=== PATIENT | male | born 1950 | race Caucasian/White ===

== ENCOUNTER 2020-02-06 22:07 | Emergency (ER) | payer MEDICAID, OTHER ==
[~2020-02-06] VITALS: Ht 172.7 cm; Wt 83.9 kg
[2020-02-06 22:07] VITALS: BP 140/86
[~2020-02-06 22:07] MED LIST: ESCI10TA PO; OMEP40EC24 PO
--- NOTE | 2020-02-06 22:07 | NUR ---
PT [facility] BLS. TAKEN TO BED 6
[2020-02-06] MEDS ORDERED: ACYCLOVIR 700 MG in NACL 0.9% 100 ML IV ONE (22:10)
[2020-02-06] MEDS ORDERED: KETOROLAC 30 MG/ML VIAL IVP ONE (22:10)
[2020-02-06] MEDS ORDERED: DIAZEPAM PFS 10 MG/2 ML SYR IVP ONE (22:10)
[2020-02-06] MEDS ORDERED: ACYCLOVIR 500 MG VIAL IV ONE (22:21)
--- NOTE | 2020-02-06 22:31 | NUR ---
69 Y/M PRESENTS TO ED FOR RASH TO R FLANK X 1 DAY. PT REPORTS 9/10 SHARP PAIN, THAT RADIATES TO FLANK. PT DENIES N/V/D/ FEVER/ DYSURIA. RR EVEN AND UNLABORED. R FLANK EDEMATOUS AND FLUID FILLED RASH NOTED. PT REPORTS TAKING VICODIN FOR PAIN WITH SLIGHT RELIEF. HX-ASTHMA, CA, DM, GERD, HTN, PVD, SCHIZO, MDD NKDA
--- NOTE | 2020-02-06 23:00 | NUR ---
PATIENT ALERT AND AWAKE, BREATHING EVEN AND UNLABORED
--- NOTE | 2020-02-07 | NUR ---
PATIENT ALERT AND AWAKE, BREATHING EVEN AND UNLABORED
--- NOTE | 2020-02-07 00:34 | NUR ---
[facility] AT BEDSIDE
[2020-02-07 00:35] VITALS: BP 135/83
--- NOTE | 2020-02-07 00:35 | NUR ---
Patient discharged with v/s stable. Written and verbal after care instructions about shingles given and explained. Patient alert, oriented and verbalized understanding of instructions. Ambulance Transport with to [facility]. All questions addressed prior to discharge. ID band removed. Patient advised to follow up with PMD. Rx of Neurontin and Acyclovir given. Patient educated on indication of medication including possible reaction and side effects. Opportunity to ask questions provided and answered.
--- NOTE | 2020-02-07 00:39 | NUR ---
PT TAKEN BY [facility] Addendum: 02/07/20 at 0040 by KIP PT RETURNING TO [facility]
== END 2020-02-07 00:39 | disposition home or self-care (01) ==
LOC: MED 22:07
DX: B02.9 Zoster without complications (principal); E11.9 Type 2 diabetes mellitus without complications; I10 Essential (primary) hypertension; E78.5 Hyperlipidemia, unspecified; F17.210 Nicotine dependence, cigarettes, uncomplicated; F32.9 Major depressive disorder, single episode, unspecified; I73.9 Peripheral vascular disease, unspecified; Z71.6 Tobacco abuse counseling; Z79.899 Other long term (current) drug therapy; Z95.1 Presence of aortocoronary bypass graft
CPT/HCPCS: 96365; 96375; 99284; J0133; J1885; J3360

== ENCOUNTER 2020-03-04 09:23 | Emergency (ER) | payer OTHER ==
[~2020-03-04] VITALS: Ht 167.6 cm; Wt 83.9 kg
--- NOTE | 2020-03-04 09:23 | NUR ---
PT BIBA BLS TO ER BED 11
[2020-03-04 09:29] VITALS: BP 134/70
[2020-03-04] MEDS ORDERED: ERYTHROMYCIN 0.5% OPTH OINT 1 GM TUBE OP ONE (09:30)
--- NOTE | 2020-03-04 09:37 | NUR ---
INITAL CONTACT WITH PATIENT--RECEIVED A 69/M FROM EMS WITH C/O LEFT EYE REDNESS AND IRRITATION. MINIMAL DRAINGE NOTED. DENIES VISUAL CHANGES. IN BED FOR MSE. COVID SCREEN NEGATIVE.
--- NOTE | 2020-03-04 10:00 | NUR ---
PT TOLERATED MEDICATIONS WELL. NO ADVERSE REACTIONS NOTED.
[2020-03-04 10:14] VITALS: BP 134/70
--- NOTE | 2020-03-04 10:14 | NUR ---
Patient discharged with v/s stable. Written and verbal after care instructions given and explained. Patient alert, oriented and verbalized understanding of instructions. Ambulatory with steady gait. All questions addressed prior to discharge. ID band removed. Patient advised to follow up with PMD. Rx of POLYMYXIN B SULFATE/TRIMETHOPRIM given. Patient educated on indication of medication including possible reaction and side effects. Opportunity to ask questions provided and answered.
== END 2020-03-04 10:14 | disposition home or self-care (01) ==
LOC: MED 09:23
DX: H10.9 Unspecified conjunctivitis (principal); E11.9 Type 2 diabetes mellitus without complications; I10 Essential (primary) hypertension; K21.9 Gastro-esophageal reflux disease without esophagitis; Z79.899 Other long term (current) drug therapy
CPT/HCPCS: 99283; 99284

== ENCOUNTER 2020-06-30 11:06 | Emergency (ER) | payer OTHER ==
[~2020-06-30] VITALS: Ht 170.2 cm; Wt 77.1 kg
--- NOTE | 2020-06-30 11:06 | NUR ---
PT BIBA AND PLACED IN BED 10.
[2020-06-30 11:12] VITALS: BP 132/77
--- NOTE | 2020-06-30 11:12 | NUR ---
69 Y/O M BIBA FROM [facility] C/C FALL WITH INJURY TO THE LUE X 20 MINS AGO. PER PT WALKING ON THE CAMPUS, TRIPPED AND FELL. DENIES LOC/HEAD INJURY/CHEST PAIN/DYSPNEA. PT PRESENTS EUPNIC,VSS,AMBULATORY,A/OX4,NEURO WNL. ON ASSESSMENT LUE EXTREMITY LIMITED ROM, CMS WNL. SWOLLEN,PAIN,REDNESS NOTED. MUSCOSKELETAL ASSESSMENT, DEFORMITY NOTED ON HUMERUS AREA ON LUE. NO ACTIVE BLEEDING. PT NKA. HX,RX - SEE CHART
[2020-06-30] MEDS ORDERED: FURO-572 PO (11:16)
[2020-06-30] MEDS ORDERED: LIP80 PO (11:16)
[2020-06-30] MEDS ORDERED: ASCO500T95 PO (11:16)
[2020-06-30] MEDS ORDERED: QUET50TA PO (11:16)
[2020-06-30] MEDS ORDERED: AMLO10TA PO (11:16)
[2020-06-30] MEDS ORDERED: TEMA15CA24 PO (11:16)
[2020-06-30] MEDS ORDERED: OLAN20TA1 PO (11:16)
[2020-06-30] MEDS ORDERED: GABA300C PO ×2 (11:16)
[2020-06-30] MEDS ORDERED: CHOL100037 PO (11:16)
[2020-06-30] MEDS ORDERED: ZINC220C28 PO (11:16)
[2020-06-30] MEDS ORDERED: ACET-2619 PO (11:16)
[2020-06-30] MEDS ORDERED: ASPI-1822 PO (11:16)
[2020-06-30] MEDS ORDERED: FERR325E14 PO (11:16)
[2020-06-30] MEDS ORDERED: LOSA50TA57 PO (11:16)
[2020-06-30] MEDS ORDERED: MIRT15TA PO (11:16)
[2020-06-30] MEDS ORDERED: CARV12.5 PO (11:16)
[2020-06-30] MEDS ORDERED: DOCU-299 PO (11:16)
[2020-06-30] MEDS ORDERED: MAG-17 PO (11:16)
[2020-06-30] MEDS ORDERED: OMEP20EC11 PO (11:16)
[2020-06-30] MEDS ORDERED: MAGN400S60 PO (11:16)
[2020-06-30] MEDS ORDERED: APIX2.5 PO (11:16)
[2020-06-30] MEDS ORDERED: MELA5TAB6 PO (11:16)
[2020-06-30] MEDS ORDERED: KETOROLAC 60 MG/2 ML VIAL IM ONE (11:25)
--- NOTE | 2020-06-30 11:44 | NUR ---
[facility] AT BEDSIDE
[2020-06-30] MEDS ORDERED: NACL 0.9% 1,000 ML IV ONE (12:25)
[2020-06-30] MEDS ORDERED: MORPHINE SULFATE 4 MG/ML SYR IVP ONE (12:35)
--- NOTE | 2020-06-30 13:47 | NUR ---
CHANDRIKA at bedside for return transport to [facility] room # 235-A.
--- NOTE | 2020-06-30 14:00 | NUR ---
SPOKE TO COURTNEY AREVALO FROM RECEIVING FACILITY [facility] PT HEADING BACK HOME
[2020-06-30 14:01] VITALS: BP 130/74
--- NOTE | 2020-06-30 14:02 | NUR ---
Patient discharged with v/s stable. Written and verbal after care instructions given and explained. Patient alert, oriented and verbalized understanding of instructions. [facility]. All questions addressed prior to discharge. ID band removed. Patient advised to follow up with PMD. Rx of NAPROSYN given. Patient educated on indication of medication including possible reaction and side effects. Opportunity to ask questions provided and answered.
== END 2020-06-30 13:55 ==
LOC: MED 11:06
DX: S42.352A Displaced comminuted fracture of shaft of humerus, left arm, initial encounter for closed fracture (principal); E11.9 Type 2 diabetes mellitus without complications; K21.9 Gastro-esophageal reflux disease without esophagitis; I10 Essential (primary) hypertension; F17.210 Nicotine dependence, cigarettes, uncomplicated; Z90.49 Acquired absence of other specified parts of digestive tract; Z98.890 Other specified postprocedural states; Z79.84 Long term (current) use of oral hypoglycemic drugs; Z79.899 Other long term (current) drug therapy; W01.0XXA Fall on same level from slipping, tripping and stumbling without subsequent striking against object, initial encounter; Y93.01 Activity, walking, marching and hiking; Y92.89 Other specified places as the place of occurrence of the external cause; Y99.8 Other external cause status
CPT/HCPCS: 71045; 73060; 96361; 96372; 96374; 99284; J1885; J2270; Q0092; J7030

== ENCOUNTER 2020-09-21 08:22 | Inpatient (IN) | payer OTHER, SELFPAY ==
[~2020-09-21] VITALS: Ht 170.2 cm; Wt 81.6 kg
[2020-09-21 08:22] VITALS: BP 101/62
[~2020-09-21 08:22] MED LIST changes: +ACET-2619 PO; +AMLO10TA PO; +APIX2.5 PO; +ASCO500T95 PO; +ASPI-1822 PO; +CARV12.5 PO; +CHOL100037 PO; +DOCU-299 PO; +FERR325E14 PO; +FURO-572 PO; +GABA300C PO; +LIP80 PO; +LOSA50TA57 PO; +MAG-17 PO; +MAGN400S60 PO; +MELA5TAB6 PO; +MIRT-91 PO; +OLAN20TA1 PO; +OMEP20EC11 PO; +QUET50TA PO; +TEMA15CA24 PO; +ZINC220C28 PO
[2020-09-21] MEDS ORDERED: CICL8SOL TP (08:46)
[2020-09-21] MEDS ORDERED: LORA10TA19 PO (08:46)
[2020-09-21] MEDS ORDERED: ATOR40TA PO (08:46)
[2020-09-21] MEDS ORDERED: LIQUITEARS OP (08:46)
[2020-09-21] MEDS ORDERED: COLL30OI TP (08:46)
[2020-09-21] MEDS ORDERED: ALUM355S50 PO (08:46)
[2020-09-21] MEDS ORDERED: HYDR-5092 PO (08:46)
[2020-09-21] MEDS ORDERED: BACTO TP (08:46)
[2020-09-21] MEDS ORDERED: NA P133E RC (08:46)
[2020-09-21] MEDS ORDERED: ACET-9882 PO (08:46)
[2020-09-21 09:01] LABS: EOSINOPHILS % (AUTO) 0.1 % (0.0-4.0); HEMATOCRIT 41.6 % (36-52); HEMOGLOBIN 13.8 g/dL (12.0-18.0); LYMPHOCYTES # (AUTO) 0.4 K/uL (2.0-11.5); LYMPHOCYTES % (AUTO) 4.9 % (20.5-51.1); MEAN CORPUSCULAR HEMOGLOBIN 30 pg (27-31); MEAN CORPUSCULAR HGB CONC 33 g/dL (33-37); MEAN CORPUSCULAR VOLUME 91.3 fL (80-94); MONOCYTES # (AUTO) 0.3 K/uL (0.8-1.0); MONOCYTES % (AUTO) 3.7 % (1.7-9.3); NEUTROPHILS # (AUTO) 7.8 K/uL (1.8-7.7); NEUTROPHILS % (AUTO) 91.3 % (42.2-75.2); PLATELET COUNT (AUTO) 205 K/uL (140-450); RED BLOOD CELL COUNT(AUTO) 4.55 MIL/uL (4.20-6.10); RED CELL DISTRIBUTION WIDTH 14.6 % (11.6-13.7); WHITE BLOOD COUNT (AUTO) 8.6 K/uL (4.8-10.8)
[2020-09-21 09:20] LABS: APPEARANCE,URINE CLEAR (CLEAR); BILIRUBIN,URINE NEGATIVE (NEGATIVE); BLOOD, URINE 1+ (NEGATIVE); COLOR,URINE YELLOW (YELLOW); LEUKOCYTE ESTERASE ,URINE NEGATIVE (NEGATIVE); NITRITE, URINE NEGATIVE (NEGATIVE); UGLUCOSE NEGATIVE (NEGATIVE)
[2020-09-21 09:24] LABS: PROTHROMBIN TIME 10.4 secs (10.8-13.4)
[2020-09-21 09:25] LABS: ALBUMIN 3.4 g/dL (3.4-5.0); ANION GAP 16.7 (8-16); CREATININE 1.7 mg/dL (0.6-1.3); LACTATE DEHYDROGENASE 270 U/L (85-227); POTASSIUM 4.7 mmol/L (3.5-5.1); TOTAL BILIRUBIN 0.5 mg/dL (0.0-1.0)
[2020-09-21 09:32] LABS: C-REACTIVE PROTEIN QUANT 3.2 mg/dL (0.0-0.9)
[2020-09-21 09:36] LABS: WBC,URINE 0-5 /HPF (0-5)
[2020-09-21 09:38] LABS: HYALINE CASTS, URINE 0-10 /LPF (None Seen)
[2020-09-21] MEDS ORDERED: MORPHINE SULFATE 4 MG/ML SYR IVP ONE (10:15)
[2020-09-21] MEDS ORDERED: SIMETHICONE 40 MG/0.6 ML PO ONE (11:10)
[2020-09-21] MEDS ORDERED: cefTRIAXone 1,000 MG VIAL ONE (11:51)
[2020-09-21] MEDS ORDERED: guaiFENesin DM 200/20 MG-10 ML 10 ML UDC PO PRN (12:15)
[2020-09-21] MEDS ORDERED: ACETAMINOPHEN 325 MG TAB PO PRN (12:15)
[2020-09-21] MEDS ORDERED: POTASSIUM CHLORIDE 10 MEQ TABER PO PRN (12:15)
[2020-09-21] MEDS ORDERED: DOCUSATE SODIUM 100 MG GELCAP PO PRN (12:15)
[2020-09-21] MEDS ORDERED: ONDANSETRON 4 MG/2 ML VIAL IM/IVP PRN (12:15)
[2020-09-21] MEDS ORDERED: ZOLPIDEM 5 MG TAB PO PRN (12:15)
[2020-09-21] MEDS ORDERED: ALBUTEROL HFA MDI 90 MCG/ACTUATION 8 GM INH PRN (12:35)
[2020-09-21] MEDS ORDERED: ALBUTEROL SULFATE/IPRATROPIU 3 ML SOL IH PRN (12:35)
[2020-09-21 12:41] VITALS: BP 130/68
[2020-09-21 12:50] LABS: BARBITURATE, URINE NEGATIVE ng/ml (NEG <=200)
[2020-09-21 12:51] LABS: BENZODIAZEPINE, URINE NEGATIVE ng/mL (NEG <=200); CANNABINOID, URINE NEGATIVE ng/mL (NEG <=50); COCAINE, URINE NEGATIVE ng/mL (NEG <=300); OPIATE, URINE POSITIVE ng/mL (NEG <=2000); PHENCYCLIDINE SCREEN,URINE NEGATIVE ng/mL (NEG <=25)
[2020-09-21 12:56] LABS: CHOL/HDL RATIO 3.9 (1-4.5); FREE T4 (FREE THYROXINE) 0.86 ng/dL (0.76-1.46); MAGNESIUM 2.1 mg/dL (1.8-2.4); PHOSPHORUS 4.7 mg/dL (2.5-4.9); THYROID STIMULATING HORMONE 0.55 uIU/mL (0.34-3.74)
[2020-09-21] MEDS: ALBUTEROL SULFATE/IPRATROPIU 3 ML SOL IH SCH ×2 (13:00→19:00)
[2020-09-21] MEDS: NACL 0.9% 1,000 ML IV SCH (13:39)
[2020-09-21] MEDS: HYDROcodone/APAP 7.5/325 MG 1 TAB PO PRN (14:26)
[2020-09-21 16:00] VITALS: BP 113/73
[2020-09-21] MEDS ORDERED: DEXTROSE 50% 50 ML SYR IVP PRN (19:25)
[2020-09-21 20:00] VITALS: BP 94/56
[2020-09-21 20:23] LABS: TOTAL PROTEIN URINE 169.7 MG/DL
[2020-09-21] MEDS: QUEtiapine FUMARATE 25 MG TAB PO SCH (20:38)
[2020-09-21] MEDS: FERROUS SULFATE 325 MG TABEC PO SCH (20:38)
[2020-09-21] MEDS: MIRTAZAPINE 15 MG TAB PO SCH (20:38)
[2020-09-21] MEDS: ATORVASTATIN 20 MG TAB PO SCH (20:38)
[2020-09-21] MEDS: APIXABAN 2.5 MG TAB PO SCH (20:38)
[2020-09-21] MEDS: OLANZapine 5 MG TAB PO SCH (20:38)
[2020-09-21] MEDS ORDERED: GABAPENTIN 300 MG CAP PO SCH (21:00)
[2020-09-21] MEDS: BLOOD GLUCOSE MONITORING 1 DEV DEV FS SCH (21:21)
[2020-09-21] MEDS: carvediloL 12.5 MG TAB PO SCH (21:22)
[2020-09-21] MEDS: INSULIN LISPRO SLIDING SCALE 100 UNITS/ML VIAL SUBQ PRN (21:23)
[2020-09-22] VITALS: BP 108/57
[2020-09-22] MEDS: ALBUTEROL SULFATE/IPRATROPIU 3 ML SOL IH SCH ×3 (01:00→13:35)
[2020-09-22 04:00] VITALS: BP 110/56
[2020-09-22] MEDS: NACL 0.9% 1,000 ML IV SCH ×2 (04:55→21:35)
[2020-09-22 05:50] LABS: ANION GAP 15.9 (8-16); CARBON DIOXIDE 28.9 mmol/L (21-32); POTASSIUM 4.8 mmol/L (3.5-5.1)
[2020-09-22 05:58] LABS: BASOPHILS % (AUTO) 0.2 % (0.0-2.0); EOSINOPHILS % (AUTO) 0.1 % (0.0-4.0); HEMATOCRIT 37.9 % (36-52); HEMOGLOBIN 12.7 g/dL (12.0-18.0); LYMPHOCYTES # (AUTO) 0.8 K/uL (2.0-11.5); LYMPHOCYTES % (AUTO) 7.8 % (20.5-51.1); MEAN CORPUSCULAR HEMOGLOBIN 31 pg (27-31); MEAN CORPUSCULAR HGB CONC 33 g/dL (33-37); MEAN CORPUSCULAR VOLUME 91.8 fL (80-94); MONOCYTES # (AUTO) 0.7 K/uL (0.8-1.0); MONOCYTES % (AUTO) 6.8 % (1.7-9.3); NEUTROPHILS # (AUTO) 8.8 K/uL (1.8-7.7); NEUTROPHILS % (AUTO) 85.1 % (42.2-75.2); PLATELET COUNT (AUTO) 190 K/uL (140-450); RED BLOOD CELL COUNT(AUTO) 4.13 MIL/uL (4.20-6.10); RED CELL DISTRIBUTION WIDTH 14.9 % (11.6-13.7); WHITE BLOOD COUNT (AUTO) 10.3 K/uL (4.8-10.8)
[2020-09-22] MEDS: BLOOD GLUCOSE MONITORING 1 DEV DEV FS SCH ×4 (06:30→21:27)
[2020-09-22] MEDS: INSULIN LISPRO SLIDING SCALE 100 UNITS/ML VIAL SUBQ PRN ×3 (06:30→16:55)
[2020-09-22 08:00] VITALS: BP 142/86
[2020-09-22] MEDS ORDERED: ASCORBIC ACID 500 MG TAB PO SCH (09:00)
[2020-09-22] MEDS ORDERED: FUROSEMIDE 20 MG TAB PO SCH (09:00)
[2020-09-22] MEDS ORDERED: LOSARTAN 50 MG TAB PO SCH (09:00)
[2020-09-22] MEDS ORDERED: GABAPENTIN 300 MG CAP PO SCH (09:00)
[2020-09-22] MEDS: ASPIRIN 81 MG TAB.CHEW PO SCH (09:10)
[2020-09-22] MEDS: FERROUS SULFATE 325 MG TABEC PO SCH ×2 (09:10→21:14)
[2020-09-22] MEDS: PANTOPRAZOLE 40 MG TABEC PO SCH (09:10)
[2020-09-22] MEDS: ZINC SULF 220 MG CAP PO SCH (09:10)
[2020-09-22] MEDS: carvediloL 12.5 MG TAB PO SCH ×2 (09:11→21:00)
[2020-09-22] MEDS: amLODIPine 5 MG TAB PO SCH (09:11)
[2020-09-22] MEDS: ASCORBIC ACID 500 MG TAB PO SCH (09:11)
[2020-09-22] MEDS: APIXABAN 2.5 MG TAB PO SCH ×2 (09:16→21:16)
[2020-09-22 12:00] VITALS: BP 133/77
[2020-09-22] MEDS ORDERED: DICYCLOMINE 10 MG CAP PO SCH (14:28)
[2020-09-22 16:00] VITALS: BP 123/65
[2020-09-22 20:00] VITALS: BP 100/54
[2020-09-22] MEDS: MIRTAZAPINE 15 MG TAB PO SCH (21:13)
[2020-09-22] MEDS: QUEtiapine FUMARATE 25 MG TAB PO SCH (21:14)
[2020-09-22] MEDS: OLANZapine 5 MG TAB PO SCH (21:14)
[2020-09-22] MEDS: ATORVASTATIN 20 MG TAB PO SCH (21:15)
[2020-09-22] MEDS: HYDROcodone/APAP 7.5/325 MG 1 TAB PO PRN (21:34)
[2020-09-23] VITALS: BP 100/63
[2020-09-23] MEDS: traZODone 50 MG TAB PO PRN ×2 (01:26→22:13)
[2020-09-23] MEDS: NACL 0.9% 1,000 ML IV SCH ×2 (03:35→21:30)
[2020-09-23 04:00] VITALS: BP 111/65
[2020-09-23 06:49] LABS: BASOPHILS % (AUTO) 0.1 % (0.0-2.0); HEMATOCRIT 33.1 % (36-52); HEMOGLOBIN 10.9 g/dL (12.0-18.0); LYMPHOCYTES # (AUTO) 0.5 K/uL (2.0-11.5); LYMPHOCYTES % (AUTO) 5.6 % (20.5-51.1); MEAN CORPUSCULAR HEMOGLOBIN 31 pg (27-31); MEAN CORPUSCULAR HGB CONC 33 g/dL (33-37); MONOCYTES # (AUTO) 0.5 K/uL (0.8-1.0); MONOCYTES % (AUTO) 6.1 % (1.7-9.3); NEUTROPHILS # (AUTO) 7.3 K/uL (1.8-7.7); NEUTROPHILS % (AUTO) 88.2 % (42.2-75.2); PLATELET COUNT (AUTO) 171 K/uL (140-450); RED BLOOD CELL COUNT(AUTO) 3.56 MIL/uL (4.20-6.10); WHITE BLOOD COUNT (AUTO) 8.3 K/uL (4.8-10.8)
[2020-09-23] MEDS: BLOOD GLUCOSE MONITORING 1 DEV DEV FS SCH ×4 (06:53→20:12)
[2020-09-23 07:04] LABS: ANION GAP 14.3 (8-16); CARBON DIOXIDE 25.8 mmol/L (21-32); CREATININE 1.9 mg/dL (0.6-1.3); POTASSIUM 5.1 mmol/L (3.5-5.1)
[2020-09-23 08:00] VITALS: BP 121/71
[2020-09-23] MEDS: FERROUS SULFATE 325 MG TABEC PO SCH ×2 (08:45→21:05)
[2020-09-23] MEDS: ZINC SULF 220 MG CAP PO SCH (08:45)
[2020-09-23] MEDS: PANTOPRAZOLE 40 MG TABEC PO SCH (08:45)
[2020-09-23] MEDS: ASPIRIN 81 MG TAB.CHEW PO SCH (08:46)
[2020-09-23] MEDS: ASCORBIC ACID 500 MG TAB PO SCH (08:47)
[2020-09-23] MEDS: HYDROcodone/APAP 7.5/325 MG 1 TAB PO PRN ×2 (08:48→19:00)
[2020-09-23] MEDS: amLODIPine 5 MG TAB PO SCH (08:49)
[2020-09-23] MEDS: carvediloL 12.5 MG TAB PO SCH ×2 (08:49→21:12)
[2020-09-23] MEDS: APIXABAN 2.5 MG TAB PO SCH ×2 (08:52→21:10)
[2020-09-23 12:00] VITALS: BP 102/49
[2020-09-23] MEDS: INSULIN LISPRO SLIDING SCALE 100 UNITS/ML VIAL SUBQ PRN ×2 (12:03→20:58)
[2020-09-23] MEDS: ALBUTEROL SULFATE/IPRATROPIU 3 ML SOL IH SCH ×2 (13:00→19:00)
[2020-09-23 16:00] VITALS: BP 117/81
[2020-09-23 20:00] VITALS: BP 122/53
[2020-09-23] MEDS ORDERED: MORPHINE SULFATE 4 MG/ML SYR IVP ONE (20:45)
[2020-09-23] MEDS: OLANZapine 5 MG TAB PO SCH (21:04)
[2020-09-23] MEDS: MIRTAZAPINE 15 MG TAB PO SCH (21:04)
[2020-09-23] MEDS: QUEtiapine FUMARATE 25 MG TAB PO SCH (21:05)
[2020-09-23] MEDS: ATORVASTATIN 20 MG TAB PO SCH (21:05)
[2020-09-24] VITALS: BP 154/72
[2020-09-24] MEDS: ALBUTEROL SULFATE/IPRATROPIU 3 ML SOL IH SCH ×4 (01:00→19:00)
[2020-09-24 04:00] VITALS: BP 149/114
[2020-09-24] MEDS: BLOOD GLUCOSE MONITORING 1 DEV DEV FS SCH ×4 (06:05→21:00)
[2020-09-24 07:25] LABS: ANION GAP 8.2 (8-16); CARBON DIOXIDE 25.2 mmol/L (21-32); CREATININE 1.8 mg/dL (0.6-1.3); POTASSIUM 4.4 mmol/L (3.5-5.1)
[2020-09-24 07:31] LABS: HEMATOCRIT 31.3 % (36-52); HEMOGLOBIN 10.3 g/dL (12.0-18.0); LYMPHOCYTES # (AUTO) 0.8 K/uL (2.0-11.5); LYMPHOCYTES % (AUTO) 8.5 % (20.5-51.1); MEAN CORPUSCULAR HEMOGLOBIN 30 pg (27-31); MEAN CORPUSCULAR HGB CONC 33 g/dL (33-37); MEAN CORPUSCULAR VOLUME 92.8 fL (80-94); MONOCYTES # (AUTO) 0.8 K/uL (0.8-1.0); MONOCYTES % (AUTO) 7.9 % (1.7-9.3); NEUTROPHILS # (AUTO) 8.1 K/uL (1.8-7.7); NEUTROPHILS % (AUTO) 83.6 % (42.2-75.2); PLATELET COUNT (AUTO) 178 K/uL (140-450); RED BLOOD CELL COUNT(AUTO) 3.37 MIL/uL (4.20-6.10); WHITE BLOOD COUNT (AUTO) 9.7 K/uL (4.8-10.8)
[2020-09-24 08:00] VITALS: BP 118/66
[2020-09-24] MEDS: carvediloL 12.5 MG TAB PO SCH ×2 (09:00→20:13)
[2020-09-24] MEDS: ASCORBIC ACID 500 MG TAB PO SCH (10:15)
[2020-09-24] MEDS: amLODIPine 5 MG TAB PO SCH (10:15)
[2020-09-24] MEDS: HYDROcodone/APAP 7.5/325 MG 1 TAB PO PRN (10:15)
[2020-09-24] MEDS: ZINC SULF 220 MG CAP PO SCH (10:16)
[2020-09-24] MEDS: ASPIRIN 81 MG TAB.CHEW PO SCH (10:16)
[2020-09-24] MEDS: FERROUS SULFATE 325 MG TABEC PO SCH ×2 (10:16→20:13)
[2020-09-24] MEDS: PANTOPRAZOLE 40 MG TABEC PO SCH (10:16)
[2020-09-24] MEDS: APIXABAN 2.5 MG TAB PO SCH ×2 (10:18→20:16)
[2020-09-24 12:00] VITALS: BP 114/69
[2020-09-24 16:00] VITALS: BP 125/68
[2020-09-24 20:00] VITALS: BP 119/83
[2020-09-24] MEDS: OLANZapine 5 MG TAB PO SCH (20:13)
[2020-09-24] MEDS: ATORVASTATIN 20 MG TAB PO SCH (20:13)
[2020-09-24] MEDS: QUEtiapine FUMARATE 25 MG TAB PO SCH (20:13)
[2020-09-24] MEDS: MIRTAZAPINE 15 MG TAB PO SCH (20:14)
[2020-09-24] MEDS: traZODone 50 MG TAB PO PRN (20:14)
[2020-09-24] MEDS: NACL 0.9% 1,000 ML IV SCH (23:35)
[2020-09-25] VITALS: BP 115/65
[2020-09-25] MEDS: ALBUTEROL SULFATE/IPRATROPIU 3 ML SOL IH SCH ×4 (01:00→19:00)
[2020-09-25] MEDS: HYDROcodone/APAP 7.5/325 MG 1 TAB PO PRN (03:06)
[2020-09-25 04:00] VITALS: BP 117/63
[2020-09-25] MEDS: BLOOD GLUCOSE MONITORING 1 DEV DEV FS SCH ×4 (06:33→21:16)
[2020-09-25 07:12] LABS: EOSINOPHILS # (AUTO) 0.1 K/uL (0-0.4); EOSINOPHILS % (AUTO) 0.8 % (0.0-4.0); HEMATOCRIT 32.6 % (36-52); HEMOGLOBIN 10.7 g/dL (12.0-18.0); LYMPHOCYTES # (AUTO) 0.7 K/uL (2.0-11.5); LYMPHOCYTES % (AUTO) 7.7 % (20.5-51.1); MEAN CORPUSCULAR HEMOGLOBIN 30 pg (27-31); MEAN CORPUSCULAR HGB CONC 33 g/dL (33-37); MEAN CORPUSCULAR VOLUME 92.2 fL (80-94); MONOCYTES # (AUTO) 0.9 K/uL (0.8-1.0); MONOCYTES % (AUTO) 10.7 % (1.7-9.3); NEUTROPHILS % (AUTO) 80.8 % (42.2-75.2); PLATELET COUNT (AUTO) 179 K/uL (140-450); RED BLOOD CELL COUNT(AUTO) 3.53 MIL/uL (4.20-6.10); RED CELL DISTRIBUTION WIDTH 14.4 % (11.6-13.7); WHITE BLOOD COUNT (AUTO) 8.7 K/uL (4.8-10.8)
[2020-09-25 07:21] LABS: MAGNESIUM 2.3 mg/dL (1.8-2.4); PHOSPHORUS 3.5 mg/dL (2.5-4.9)
[2020-09-25 07:23] LABS: ANION GAP 13.5 (8-16); CREATININE 1.7 mg/dL (0.6-1.3); POTASSIUM 4.5 mmol/L (3.5-5.1)
[2020-09-25 08:00] VITALS: BP 144/71
[2020-09-25] MEDS: PANTOPRAZOLE 40 MG TABEC PO SCH (08:48)
[2020-09-25] MEDS: ASPIRIN 81 MG TAB.CHEW PO SCH (08:48)
[2020-09-25] MEDS: ASCORBIC ACID 500 MG TAB PO SCH (08:48)
[2020-09-25] MEDS: amLODIPine 5 MG TAB PO SCH (08:49)
[2020-09-25] MEDS: APIXABAN 2.5 MG TAB PO SCH ×2 (08:50→21:22)
[2020-09-25] MEDS: carvediloL 12.5 MG TAB PO SCH ×2 (08:52→21:00)
[2020-09-25] MEDS: FERROUS SULFATE 325 MG TABEC PO SCH ×2 (08:52→21:20)
[2020-09-25] MEDS: ZINC SULF 220 MG CAP PO SCH (08:52)
[2020-09-25 12:00] VITALS: BP 136/73
[2020-09-25 16:00] VITALS: BP 136/71
[2020-09-25] MEDS: NACL 0.9% 1,000 ML IV SCH (16:15)
[2020-09-25 20:00] VITALS: BP 119/58
[2020-09-25] MEDS: ATORVASTATIN 20 MG TAB PO SCH (21:20)
[2020-09-25] MEDS: MIRTAZAPINE 15 MG TAB PO SCH (21:20)
[2020-09-25] MEDS: QUEtiapine FUMARATE 25 MG TAB PO SCH (21:21)
[2020-09-25] MEDS: OLANZapine 5 MG TAB PO SCH (21:21)
[2020-09-26] VITALS: BP 111/75
[2020-09-26] MEDS: ALBUTEROL SULFATE/IPRATROPIU 3 ML SOL IH SCH ×3 (01:00→13:23)
[2020-09-26 04:00] VITALS: BP 135/66
[2020-09-26 07:29] LABS: BASOPHILS % (AUTO) 0.1 % (0.0-2.0); EOSINOPHILS # (AUTO) 0.1 K/uL (0-0.4); EOSINOPHILS % (AUTO) 0.8 % (0.0-4.0); HEMATOCRIT 32.4 % (36-52); HEMOGLOBIN 10.9 g/dL (12.0-18.0); LYMPHOCYTES # (AUTO) 0.7 K/uL (2.0-11.5); LYMPHOCYTES % (AUTO) 6.9 % (20.5-51.1); MEAN CORPUSCULAR HEMOGLOBIN 31 pg (27-31); MEAN CORPUSCULAR HGB CONC 34 g/dL (33-37); MONOCYTES # (AUTO) 1.1 K/uL (0.8-1.0); MONOCYTES % (AUTO) 10.5 % (1.7-9.3); NEUTROPHILS # (AUTO) 8.5 K/uL (1.8-7.7); NEUTROPHILS % (AUTO) 81.7 % (42.2-75.2); PLATELET COUNT (AUTO) 186 K/uL (140-450); RED BLOOD CELL COUNT(AUTO) 3.57 MIL/uL (4.20-6.10); RED CELL DISTRIBUTION WIDTH 14.1 % (11.6-13.7); WHITE BLOOD COUNT (AUTO) 10.3 K/uL (4.8-10.8)
[2020-09-26 07:44] LABS: MAGNESIUM 2.1 mg/dL (1.8-2.4); PHOSPHORUS 3.2 mg/dL (2.5-4.9)
[2020-09-26] MEDS: BLOOD GLUCOSE MONITORING 1 DEV DEV FS SCH ×2 (07:51→11:34)
[2020-09-26 08:11] LABS: ANION GAP 14.6 (8-16); CARBON DIOXIDE 24.6 mmol/L (21-32); CREATININE 1.3 mg/dL (0.6-1.3); POTASSIUM 4.2 mmol/L (3.5-5.1)
[2020-09-26] MEDS: ASCORBIC ACID 500 MG TAB PO SCH (08:45)
[2020-09-26] MEDS: PANTOPRAZOLE 40 MG TABEC PO SCH (08:45)
[2020-09-26] MEDS: carvediloL 12.5 MG TAB PO SCH (08:46)
[2020-09-26] MEDS: ASPIRIN 81 MG TAB.CHEW PO SCH (08:46)
[2020-09-26] MEDS: ZINC SULF 220 MG CAP PO SCH (08:47)
[2020-09-26] MEDS: FERROUS SULFATE 325 MG TABEC PO SCH (08:47)
[2020-09-26] MEDS: amLODIPine 5 MG TAB PO SCH (08:47)
[2020-09-26] MEDS: HYDROcodone/APAP 7.5/325 MG 1 TAB PO PRN (08:48)
[2020-09-26] MEDS: APIXABAN 2.5 MG TAB PO SCH (08:55)
[2020-09-26] MEDS: NACL 0.9% 1,000 ML IV SCH (09:00)
[2020-09-26] MEDS ORDERED: AMOX-1000 PO (11:48)
[2020-09-26 12:11] VITALS: BP 119/68
== END 2020-09-26 13:40 | DRG 871 ==
LOC: MED 08:22 → MTU 11:47
PROVIDERS: ADMIT Family Medicine; ATTEND Family Medicine
DX: A41.9 Sepsis, unspecified organism (principal); J69.0 Pneumonitis due to inhalation of food and vomit; N17.0 Acute kidney failure with tubular necrosis; J96.01 Acute respiratory failure with hypoxia; J96.02 Acute respiratory failure with hypercapnia; I13.0 Hypertensive heart and chronic kidney disease with heart failure and stage 1 through stage 4 chronic kidney disease, or unspecified chronic kidney disease; J44.0 Chronic obstructive pulmonary disease with (acute) lower respiratory infection; N18.9 Chronic kidney disease, unspecified; E11.22 Type 2 diabetes mellitus with diabetic chronic kidney disease; E86.0 Dehydration; F39 Unspecified mood [affective] disorder; E11.40 Type 2 diabetes mellitus with diabetic neuropathy, unspecified; I25.10 Atherosclerotic heart disease of native coronary artery without angina pectoris; I50.9 Heart failure, unspecified; K40.20 Bilateral inguinal hernia, without obstruction or gangrene, not specified as recurrent; N43.3 Hydrocele, unspecified; Z20.828 Contact with and (suspected) exposure to other viral communicable diseases; K21.9 Gastro-esophageal reflux disease without esophagitis; Z95.1 Presence of aortocoronary bypass graft; Z79.82 Long term (current) use of aspirin; Z79.899 Other long term (current) drug therapy; Z89.421 Acquired absence of other right toe(s)
CPT/HCPCS: 36415; 36600; 71045; 76770; 76870; 80048; 80053; 80305; 81001; 82150; 82550; 82570; 82728; 82803; 82948; 83036; 83605; 83615; 83690; 83735; 83880; 84100; 84156; 84436; 84439; 84443; 84479; 84484; 85025; 85379; 85384; 85610; 85651; 85730; 86140; 86886; 86900; 86901; 87040; 87081; 87086; 87804; 93005; 94640; 96365; 96375; 97110; 97116; 97161-GP; 97530; 99291; J0696; J1644; J2270; J7030; J7060; U0003